=== PATIENT | male | born 1965 | race Caucasian/White ===

== ENCOUNTER → 2017-12-28 | Outpatient (CLI) | payer BC ==
[~2017-12-28] MED LIST: BENADRYL25 M2 PO; CELEXA10 MG PO; MULTIPLE VITAMI1 CAP PO; NORCO 325 MG-51 TAB PO; NORCO 325 MG-7.1 TAB PO; PROAIR HFA0.09 MG/AC IH; TAGAMET200 MG PO; ZANTAC 150MG T150 MG PO; ZOFRAN ODT4 MG PO
== END ==
LOC: COL.RAD 09:23
DX: Z85.820 Personal history of malignant melanoma of skin (principal)
CPT/HCPCS: A9585